=== PATIENT | female | born 1995 | race Two or more races ===

== ENCOUNTER 2016-12-29 08:11 | Emergency (ER) | payer MEDICAID ==
[2016-12-29 08:20] VITALS: BP 133/84
--- NOTE | 2016-12-29 08:50 | EDM.PDOC ---
ED HISTORY OF PRESENT ILLNESS - General Chief Complaint: Respiratory Problem Stated Complaint: SOB/COUGH Time Seen by Provider: 12/29/16 08:26 Source of Information: Reports: Patient, RN notes reviewed History Limitations: Reports: No limitations - History of Present Illness INITIAL COMMENTS - FREE TEXT/NARRATIVE: The patient states that she developed nausea with emesis, cough productive of a clear sputum, headache, the feeling of being hot and cold, and nasal congestion , 2 days ago. She then developed a sore throat and shortness of breath this morning. She has not had a documented fever, and is afebrile here. No ill contacts. She does not recall if she received an influenza vaccine this season. She has been taking nxuz-qlw-tmqwdcr TheraFlu, DayQuil, and NyQuil, with no relief of her symptoms. No prior medical evaluation for this illness - her doctor is in [facility]. - Related Data Allergies/ADRs: Allergies Allergy/AdvReac Type Severity Reaction Status Date / Time No Known Allergies Allergy Verified 12/29/16 08:20 Home Meds: Home Meds Control. 1 tab PO DAILY 12/29/16 [History] Ondansetron [Zofran ODT] 1 tab PO Q8H PRN #10 tab.dis 12/29/16 [Rx] Past Medical History Endocrine/Metabolic History: Reports: Obesity/BMI 30+ Social & Family History - Tobacco Use Smoking Status *Q: Never Smoker Second Hand Smoke Exposure: No - Alcohol Use Alcohol Use History: Yes Alcohol Use Frequency: Socially - Recreational Drug Use Recreational Drug Use: No - Living Situation & Occupation Living situation: Reports: single Occupation: student ([employer]) ED ROS GENERAL - Review of Systems Review Of Systems: See Below Constitutional: Reports: no symptoms HEENT: Reports: No symptoms Respiratory: Reports: No Symptoms Cardiovascular: Reports: No symptoms Endocrine: Reports: no symptoms GI/Abdominal: Reports: No symptoms : Reports: no symptoms Musculoskeletal: Reports: no symptoms Skin: Reports: no symptoms Neurological: Reports: No Symptoms Psychiatric: Reports: No symptoms Hematologic/Lymphatic: Reports: no symptoms Immunologic: Reports: no symptoms ED EXAM, GENERAL - Physical Exam Exam: See Below Exam Limited By: No limitations General Appearance: alert, WD/WN, no apparent distress Eye Exam: bilateral eye: EOMI, normal inspection Ears: normal external exam, normal canal, hearing grossly normal, normal TMs Ear Exam: bilateral ear: auricle normal, canal normal, TM normal Nose: normal inspection, no blood, other (Bilateral nasal mucosal edema) Throat/Mouth: Normal inspection, Normal lips, Normal teeth, Normal gums, Normal oropharynx, Normal voice, No airway compromise Head: atraumatic, normocephalic Neck: normal inspection, supple, non-tender, full range of motion. No: lymphadenopathy (L), lymphadenopathy (R) Respiratory/Chest: no respiratory distress, lungs clear, normal breath sounds, no accessory muscle use Cardiovascular: normal peripheral pulses, regular rate, rhythm, no edema, no gallop, no JVD, no murmur, no rub Peripheral Pulses: 4+: radial (L), radial (R) GI/Abdominal: normal bowel sounds, soft, non tender, no organomegaly, no distention, no abnormal bruit, no mass, other (Obese) Back Exam: normal inspection, full range of motion, NT Extremities: normal inspection, normal range of motion, non-tender, normal capillary refill, no pedal edema Neurological: alert, oriented, normal cognition, no motor/sensory deficits Psychiatric: normal affect, normal mood Skin Exam: Warm, Dry, Intact, Normal color, No rash Lymphatic: no adenopathy Course - Vital Signs Last Recorded V/S: Last Vital Signs Temp 36.3 C 12/29/16 08:17 Pulse 88 12/29/16 08:17 Resp 18 12/29/16 08:17 BP 133/84 12/29/16 08:17 Pulse Ox 97 12/29/16 08:17 - Orders/Labs/Meds Orders: Active Orders 24 hr Category Date Time Status Chest 2V [CR] Stat Exams 12/29/16 08:46 Taken CULTURE STREP A CONFIRMATION [RM] Stat Lab 12/29/16 08:47 Results STREP SCRN A RAPID W CULT CONF [RM] Stat Lab 12/29/16 08:47 Results - Radiology Interpretation Free Text/Narrative:: Two-view chest radiograph appears to be grossly normal. Cardiac silhouette is within normal limits. No pulmonary vascular congestion. No pleural effusions. No focal infiltrate. No pneumothorax. Formal read per the Radiologist pending. - Re-Assessments/Exams Free Text/Narrative Re-Assessment/Exam: 12/29/16 09:31 Test results discussed with the patient. Today's workup is entirely normal. She is most likely suffering from a viral URI with postnasal drip and cough. I explained that, unfortunately, there are no medicines we can give her to treat a viral URI, that it will have to run its course. Additionally, I am not recommending she take any vqig-tzm-zozyarj cough or cold remedies, as she has already discovered, they are ineffective. I am suggesting Chloraseptic spray or warm salt water gargles to treat her sore throat, Tylenol or ibuprofen for discomfort, and perhaps a nasal decongestant or saline spray to treat her nasal congestion. I will e-prescribe Zofran. Departure - Departure Time of Disposition: 09:33 Disposition: Home, Self-Care 01 Condition: good Clinical Impression: Viral URI with cough Referrals: PCP,None [Primary Care Provider] - Lucia Jain PA-C [Physician Industrial/Organizational Psychologist] - Forms: ED Department Discharge Additional Instructions: You were seen in the emergency room today for nausea and vomiting, a cough, a headache, feeling hot and cold, nasal congestion, a sore throat, and shortness of breath. Workup in the ER included a rapid strep test, an influenza swab, and a chest x- ray. Your entire workup was normal. You do not have strep throat, you do not have influenza, and you do not have pneumonia. You MOST LIKELY have a viral upper respiratory infection, also known as a common cold. We do not recommend you take any jstp-ayz-ztgvmii cough or cold remedies, for, as you have already discovered, they do not really help. Consider purchasing oxymetazoline nasal spray in a "pump mist" bottle. If you have difficulty finding it, your Pharmacist can help. [place] one spray up each nostril, wait 5 minutes, then spray a second spray up each nostril. Repeat every 12 hours. You can do this for a MAXIMUM of 5 days. Consider also purchasing nasal saline spray in a pressurized can, such as "Simply Saline". [place] this up each nostril many times per day. Take acjf-gtz-bztexul Tylenol or ibuprofen as needed for discomfort. Ibuprofen will probably work better and last longer, but may cause stomach upset. For your sore throat, consider using Chloraseptic spray or warm salt water gargles. For your nausea and vomiting, dissolve one tablet of the anti-nausea medicine Zofran on your tongue up to every 8 hours, as prescribed. Followup with Lucia Jain in the clinic as needed. If any other problems, please do not hesitate to return to the ER. - My Orders Last 24 Hours: My Active Orders 12/29/16 08:46 Chest 2V [CR] Stat 12/29/16 08:47 CULTURE STREP A CONFIRMATION [RM] Stat STREP SCRN A RAPID W CULT CONF [RM] Stat - Assessment/Plan Last 24 Hours: My Active Orders 12/29/16 08:46 Chest 2V [CR] Stat 12/29/16 08:47 CULTURE STREP A CONFIRMATION [RM] Stat STREP SCRN A RAPID W CULT CONF [RM] Stat
[2016-12-29] MEDS ORDERED: Ondansetron 4 MG Tab.DIS PO ONE (09:34)
--- NOTE | 2016-12-29 12:21 | CR ---
Chest: Two views of the chest were obtained. Comparison: No previous study. Heart size and mediastinum are normal. Lungs are clear. Bony structures are unremarkable. Impression: 1. No acute intrathoracic process is seen on two-view chest x-ray. Diagnostic code #1
== END 2016-12-29 10:03 | disposition home or self-care (01) ==
LOC: JD.ED 08:11
DX: R05 Cough (principal); Z79.3 Long term (current) use of hormonal contraceptives; E66.9 Obesity, unspecified; Z68.30 Body mass index [BMI] 30.0-30.9, adult
CPT/HCPCS: 71020; 87081; 87430; 87804; 99284; A9270; 99283

== ENCOUNTER 2019-01-24 12:56 | Emergency (ER) | payer OTHER ==
[2019-01-24 13:12] VITALS: BP 122/81
[2019-01-24] MEDS ORDERED: Phenazopyridine 95 MG Tab PO STA (13:12)
--- NOTE | 2019-01-24 13:18 | EDM.PDOC ---
ED HPI GENERAL MEDICAL PROBLEM - General Chief Complaint: Genitourinary Problem Stated Complaint: POSS UTI Time Seen by Provider: 01/24/19 13:04 Source of Information: Reports: Patient History Limitations: Reports: No Limitations - History of Present Illness INITIAL COMMENTS - FREE TEXT/NARRATIVE: 23 y/o female presents to ER with cc dysuria and vaginal irritation. She reports having uroprotective sex 5 days ago. She denies back pain, fever or chills. She has not taking anything for her symptoms. Nothing makes it better or worse. She states she has been healthy otherwise. She does not have a PCP. Onset Date: 01/21/19 Onset Time: 09:00 Duration: Getting Worse Quality: Reports: Ache Severity: Mild Improves with: Reports: None Worsens with: Reports: None Associated Symptoms: Denies: Fever/Chills, Nausea/Vomiting Vaginal Pain Score (Numeric/FACES): 5 - Related Data Allergies Allergy/AdvReac Type Severity Reaction Status Date / Time No Known Allergies Allergy Verified 01/24/19 13:07 Home Meds: Home Meds Nitrofurantoin Monohyd/M-Cryst [Macrobid 100 mg Capsule] 100 mg PO BID 7 Days # 14 capsule 01/24/19 [Rx] Past Medical History - Past Health History Medical/Surgical History: Denies Medical/Surgical History Endocrine/Metabolic History: Reports: Obesity/BMI 30+ Social & Family History - Caffeine Use Caffeine Use: Reports: Coffee - Living Situation & Occupation Living situation: Reports: Single Occupation: Student ED ROS GENERAL - Review of Systems Review Of Systems: See Below Constitutional: Denies: Fever, Chills HEENT: Reports: No Symptoms Respiratory: Reports: No Symptoms Cardiovascular: Reports: No Symptoms Endocrine: Reports: No Symptoms GI/Abdominal: Denies: Abdominal Pain : Reports: Discharge (white), Dysuria. Denies: Flank Pain Musculoskeletal: Reports: No Symptoms. Denies: Back Pain Skin: Reports: No Symptoms Neurological: Reports: No Symptoms Psychiatric: Reports: No Symptoms Hematologic/Lymphatic: Reports: No Symptoms Immunologic: Reports: No Symptoms ED EXAM, GI/ABD - Physical Exam Exam: See Below Exam Limited By: No Limitations General Appearance: Alert, WD/WN, No Apparent Distress Respiratory/Chest: No Respiratory Distress, Lungs Clear, Normal Breath Sounds, No Accessory Muscle Use, Chest Non-Tender Cardiovascular: Normal Peripheral Pulses, Regular Rate, Rhythm, No Edema, No Gallop, No JVD, No Murmur, No Rub GI/Abdominal Exam: Normal Bowel Sounds, Soft, Non-Tender, No Organomegaly, No Distention, No Abnormal Bruit, No Mass, Pelvis Stable Back Exam: Normal Inspection, Full Range of Motion Extremities: Normal Inspection, Normal Range of Motion, Non-Tender, No Pedal Edema, Normal Capillary Refill Neurological: Alert, Oriented, Normal Cognition, Normal Gait Psychiatric: Normal Affect, Normal Mood Skin Exam: Warm, Dry, Intact, Normal Color, No Rash Lymphatic: No Adenopathy Course - Vital Signs Last Recorded V/S: Last Vital Signs Temp 97.9 F 01/24/19 13:09 Pulse 80 01/24/19 13:09 Resp 15 01/24/19 13:09 BP 122/81 01/24/19 13:09 Pulse Ox 100 01/24/19 13:09 - Orders/Labs/Meds Labs: Laboratory Tests 01/24/19 01/24/19 Range/Units 13:10 13:10 Urine Color Yellow (Yellow) Urine Appearance Clear (Clear) Urine pH 5.5 (5.0-8.0) Ur Specific [place] > or = 1.030 (1.005-1.030) Urine Protein 1+ H (Negative) Urine Glucose (UA) Negative (Negative) Urine Ketones Negative (Negative) Urine Occult Blood 2+ H (Negative) Urine Nitrite Negative (Negative) Urine Bilirubin Negative (Negative) Urine Urobilinogen 0.2 (0.2-1.0) Ur Leukocyte Esterase 2+ H (Negative) Urine HCG, Qual Negative (NEGATIVE) Meds: Medications Discontinued Medications Generic Name Dose Route Start Last Admin Trade Name Freq PRN Reason Stop Dose Admin Phenazopyridine HCl 95 mg 01/24/19 13:12 01/24/19 13:20 Urinary Pain Relief PO 01/24/19 13:13 95 mg NOW STA Administration - Re-Assessments/Exams Free Text/Narrative Re-Assessment/Exam: 01/24/19 13:36 Urinalysis revealed + 1 protein, + 2 occult blood, + leukocytes. This is consistent with UTI. I will discharge home with Macrobid for outpatient antibiotic therapy. Instructed her to follow up with PCP referral was given for [facility]. Instructed to return to the ER for any new or acute worsening symptoms. Patient verbalized understanding and is comfortable with plan for discharge. She is stable at time of discharge. Departure - Departure Time of Disposition: 13:45 Disposition: Home, Self-Care 01 Condition: Good Clinical Impression: UTI, Urinary tract infectious disease - Discharge Information *PRESCRIPTION DRUG MONITORING PROGRAM REVIEWED*: Not Applicable *COPY OF PRESCRIPTION DRUG MONITORING REPORT IN PATIENT LUCY: Not Applicable Prescriptions: Nitrofurantoin Monohyd/M-Cryst [Macrobid 100 mg Capsule] 100 mg PO BID 7 Days # 14 capsule Instructions: Urinary Tract Infection, Adult, Dysuria Referrals: PCP,None [Ordering Only Provider] - Debbie Dumont MD [Physician] - Forms: ED Department Discharge Additional Instructions: you have been diagnosis with urinary tract infection. Take Macrobid twice daily for 7 days. Follow up with Dr. Dumont or other provider as needed. Return to the ER for any new or acute worsening symptoms.
== END 2019-01-24 13:50 | disposition home or self-care (01) ==
LOC: JD.ED 12:56
DX: N39.0 Urinary tract infection, site not specified (principal)
CPT/HCPCS: 81003; 81025; 99283; A9270

== ENCOUNTER 2019-01-26 03:42 | Emergency (ER) | payer OTHER ==
[2019-01-26 03:54] VITALS: BP 120/67
[2019-01-26] MEDS ORDERED: Proparacaine 0.5% Ophth Soln 15 ML Bottle SCH (04:30)
--- NOTE | 2019-01-26 04:50 | EDM.PDOC ---
ED HPI GENERAL MEDICAL PROBLEM - General Chief Complaint: ENT Problem Stated Complaint: ear pain Time Seen by Provider: 01/26/19 03:58 Source of Information: Reports: Patient History Limitations: Reports: No Limitations - History of Present Illness INITIAL COMMENTS - FREE TEXT/NARRATIVE: This is a 23-year-old female. She says for the last couple of days increasing left ear pain. She tried some xfxj-nda-sipcoww drops are not helping and she comes to the ER for evaluation. She has had some mild sore throat and congestion and sinus congestion over the last 4-5 days. She had a hard time sleeping this evening because of the left ear pain. She has no cough. No nausea and vomiting. She was seen here 2 days ago for urinary tract infection and she is on Macrobid. Bilateral Ear Pain Score (Numeric/FACES): 7 - Related Data Allergies Allergy/AdvReac Type Severity Reaction Status Date / Time No Known Allergies Allergy Verified 01/26/19 03:54 Home Meds: Home Meds Nitrofurantoin Monohyd/M-Cryst [Macrobid 100 mg Capsule] 100 mg PO BID 7 Days # 14 capsule 01/24/19 [Rx] Cephalexin [Keflex] 500 mg PO TID #21 capsule 01/26/19 [Rx] Past Medical History - Past Health History Medical/Surgical History: Denies Medical/Surgical History Endocrine/Metabolic History: Reports: Obesity/BMI 30+ Social & Family History - Tobacco Use Smoking Status *Q: Never Smoker - Caffeine Use Caffeine Use: Reports: Coffee - Recreational Drug Use Recreational Drug Use: Yes Drug Use in Last 12 Months: Yes Recreational Drug Type: Reports: Marijuana/Hashish - Living Situation & Occupation Living situation: Reports: Single Occupation: Student ED ROS ENT - Review of Systems Review Of Systems: See Below Constitutional: Denies: Fever, Chills HEENT: Reports: Ear Pain, Rhinitis, Sinus Problem. Denies: Ear Discharge Respiratory: Denies: Shortness of Breath, Cough Cardiovascular: Denies: Chest Pain Endocrine: Reports: No Symptoms GI/Abdominal: Denies: Abdominal Pain : Reports: Dysuria Musculoskeletal: Reports: No Symptoms Skin: Reports: No Symptoms Neurological: Reports: No Symptoms Psychiatric: Reports: No Symptoms Hematologic/Lymphatic: Reports: No Symptoms ED EXAM, ENT - Physical Exam Exam: See Below Exam Limited By: No Limitations General Appearance: Alert, WD/WN, No Apparent Distress Eye Exam: Bilateral Eye: Normal Inspection Ears: Normal External Exam, Normal Canal, Other (The right TM appears to be normal the left TM is red and bulging) Nose: Clear Rhinorrhea Mouth/Throat: Normal Inspection, Normal Lips, Normal Oropharynx Head: Normocephalic Neck: Supple Respiratory/Chest: No Respiratory Distress, Lungs Clear, Normal Breath Sounds Cardiovascular: Regular Rate, Rhythm, No Murmur Back: Normal Inspection, Full Range of Motion Extremities: Normal Inspection, Normal Range of Motion Neurological: Alert, Oriented Psychiatric: Normal Affect, Normal Mood Skin: Warm, Dry Course - Vital Signs Last Recorded V/S: Last Vital Signs Temp 97.9 F 01/26/19 03:50 Pulse 90 01/26/19 03:50 Resp 16 01/26/19 03:50 BP 120/67 01/26/19 03:50 Pulse Ox 98 01/26/19 03:50 - Orders/Labs/Meds Orders: Active Orders 24 hr Category Date Time Status Proparacaine [Proparacaine 0.5% Ophth Soln] Med 01/26/19 04:30 Active 1 ml .XX Q4H Medication Orders Proparacaine HCl (Proparacaine 0.5% Ophth Soln) 1 ml .XX Q4H [facility] Meds: Medications Generic Name Dose Route Start Last Admin Trade Name Freq PRN Reason Stop Dose Admin Proparacaine HCl 1 ml 01/26/19 04:30 Proparacaine 0.5% Ophth Soln .XX Q4H [facility] - Re-Assessments/Exams Free Text/Narrative Re-Assessment/Exam: 01/26/19 04:47 The proparacaine did seem to take the edge off the left ear pain. I spoke to her about using the drops for the pain as well as getting a decongestant to open up her eustachian tube and get the pressure out of the middle ear. We will stop the Macrobid and I'll place her on some Keflex which hopefully will take care of the bladder infection as well as the ear infection. Departure - Departure Time of Disposition: 04:48 Disposition: Home, Self-Care 01 Condition: Good Clinical Impression: Left otitis media with effusion, Left ear pain - Discharge Information *PRESCRIPTION DRUG MONITORING PROGRAM REVIEWED*: Not Applicable *COPY OF PRESCRIPTION DRUG MONITORING REPORT IN PATIENT LUCY: Not Applicable Prescriptions: Cephalexin [Keflex] 500 mg PO TID #21 capsule Instructions: Otitis Media, Adult, [id number] Referrals: PCP,None [Primary Care Provider] - Forms: ED Department Discharge, ED Return to Work/School Form Additional Instructions: Stop taking the Macrobid, start the Keflex 3 times a day for the next 7 days, use the proparacaine drops to help numb the ears, use ibuprofen 600 mg every 6 hours to help with the ear pain, use heat to the side of the face and neck to help open up the eustachian tube, get some Sudafed or Actifed to help open up the eustachian tube and get the ears to drain, follow-up with your family doctor this week for recheck, return to the ER if needed - My Orders Last 24 Hours: My Active Orders 01/26/19 04:30 Proparacaine [Proparacaine 0.5% Ophth Soln] 1 ml .XX Q4H - Assessment/Plan Last 24 Hours: My Active Orders 01/26/19 04:30 Proparacaine [Proparacaine 0.5% Ophth Soln] 1 ml .XX Q4H
== END 2019-01-26 04:59 | disposition home or self-care (01) ==
LOC: JD.ED 03:42
DX: H65.92 Unspecified nonsuppurative otitis media, left ear (principal)
CPT/HCPCS: 99282; 99283

== ENCOUNTER 2019-08-02 09:49 | Emergency (ER) | payer OTHER ==
[2019-08-02 09:58] VITALS: BP 112/84; PULSE 90
[2019-08-02] MEDS ORDERED: FLU Vacc QS2019-20(6MOS+)/PF 60 MCG/0.5 ML SYRINGE IM ONE (10:30)
--- NOTE | 2019-08-02 11:14 | EDM.PDOC ---
ED HPI GENERAL MEDICAL PROBLEM - General Chief Complaint: Back Pain or Injury Stated Complaint: BACK PAIN,NAUSEA Time Seen by Provider: 08/02/19 10:16 Source of Information: Reports: Patient, RN Notes Reviewed - History of Present Illness INITIAL COMMENTS - FREE TEXT/NARRATIVE: 23-year-old female comes in with low back pain. She first became aware of low back discomfort during the night about its 10 hours ago. He is to have low back pain this morning that hasn't gone away. It does not radiate down either leg. The discomfort does seem to be somewhat worse with motion. There's been no fall or injury. She has had some mild nausea. Occasional chills, no fever. No abdominal or pelvic pain at this time. No voiding symptomatology. Lower Back Pain Score (Numeric/FACES): 8 - Related Data Allergies Allergy/AdvReac Type Severity Reaction Status Date / Time No Known Allergies Allergy Verified 08/02/19 09:58 Home Meds: Home Meds Nitrofurantoin Monohyd/M-Cryst [Macrobid 100 mg Capsule] 100 mg PO BID #10 capsule 08/02/19 [Rx] Past Medical History - Past Health History Medical/Surgical History: Denies Medical/Surgical History Genitourinary History: Reports: UTI, Recurrent Endocrine/Metabolic History: Reports: Obesity/BMI 30+ Social & Family History - Family History Family Medical History: Noncontributory - Tobacco Use Smoking Status *Q: Never Smoker Second Hand Smoke Exposure: No - Caffeine Use Caffeine Use: Reports: None - Recreational Drug Use Recreational Drug Use: Yes Recreational Drug Type: Reports: Marijuana/Hashish Recreational Drug Use Frequency: Socially - Living Situation & Occupation Living situation: Reports: Single Occupation: Student ED ROS GENERAL - Review of Systems Review Of Systems: See Below Constitutional: Reports: Chills. Denies: Fever, Diaphoresis HEENT: Reports: No Symptoms Respiratory: Denies: Shortness of Breath Cardiovascular: Denies: Chest Pain GI/Abdominal: Reports: Nausea. Denies: Abdominal Pain, Diarrhea, Vomiting : Reports: No Symptoms Musculoskeletal: Reports: Back Pain Skin: Reports: No Symptoms Neurological: Reports: No Symptoms ED EXAM,LOWER BACK PAIN/INJURY - Physical Exam Exam: See Below General Appearance: Alert, No Apparent Distress Throat/Mouth: Normal Inspection, Normal Oropharynx Head: Atraumatic Neck: Supple Respiratory/Chest: No Respiratory Distress, Lungs Clear, Normal Breath Sounds Cardiovascular: Regular Rate, Rhythm GI/Abdominal: Soft, Non-Tender Back Exam: Paraspinal Tenderness (Mild left low back). No: CVA Tenderness (L), CVA Tenderness (R), Vertebral Tenderness Neurological: Alert, No Motor/Sensory Deficits Skin Exam: Warm, Normal Color Course - Vital Signs Last Recorded V/S: Last Vital Signs Temp 97.1 F 08/02/19 09:55 Pulse 90 08/02/19 09:55 Resp 16 08/02/19 09:55 BP 112/84 08/02/19 09:55 Pulse Ox 95 08/02/19 09:55 - Orders/Labs/Meds Orders: Active Orders 24 hr Category Date Time Status Influenza Vaccine Charge [RC] .DISCHARGE Care 08/02/19 10:02 Active Labs: Laboratory Tests 08/02/19 Range/Units 10:10 Urine Color Light yellow (Yellow) Urine Appearance Clear (Clear) Urine pH 7.5 (5.0-8.0) Ur Specific [place] 1.020 (1.005-1.030) Urine Protein Negative (Negative) Urine Glucose (UA) Negative (Negative) Urine Ketones Negative (Negative) Urine Occult Blood Trace-intact H (Negative) Urine Nitrite Negative (Negative) Urine Bilirubin Negative (Negative) Urine Urobilinogen 0.2 (0.2-1.0) Ur Leukocyte Esterase Trace H (Negative) Urine RBC 5-10 H (0-5) /hpf Urine WBC 5-10 H (0-5) /hpf Ur Squamous Epith Cells 0-5 (0-5) /hpf Urine Bacteria Moderate H (FEW) /hpf Urine Mucus Few (FEW) /hpf Meds: Medications Discontinued Medications Generic Name Dose Route Start Last Admin Trade Name Freq PRN Reason Stop Dose Admin Influenza Virus Vaccine 1 each 08/02/19 10:02 Pharmacy To Dose - Influenza Vaccine IM 08/02/19 10:03 ONETIME ONE Influenza Virus Vaccine 60 mcg 08/02/19 10:30 08/02/19 10:59 Fluzone Quad [id number] Syringe IM 08/02/19 10:31 60 mcg .ONCE ONE Administration - Re-Assessments/Exams Free Text/Narrative Re-Assessment/Exam: 08/02/19 12:34. UA does show evidence for simple UTI. Will treat with Macrobid 100 mg twice a day for 5 days. Discharge instructions as documented. Departure - Departure Time of Disposition: 11:11 Disposition: Home, Self-Care 01 Condition: Fair Clinical Impression: UTI (urinary tract infection) - Discharge Information Prescriptions: Nitrofurantoin Monohyd/M-Cryst [Macrobid 100 mg Capsule] 100 mg PO BID #10 capsule Instructions: Urinary Tract Infection, Adult, [id number] Referrals: PCP,None [Primary Care Provider] - Forms: ED Department Discharge Additional Instructions: Drink plenty of water to maintain hydration, Macrobid antibiotic 100 mg twice daily for 5 days. follow-up clinic if not much better within 2-3 days as expected, return to ED as needed if symptoms worsening in any way - My Orders Last 24 Hours: My Active Orders 08/02/19 10:02 Influenza Vaccine Charge [RC] .DISCHARGE - Assessment/Plan Last 24 Hours: My Active Orders 08/02/19 10:02 Influenza Vaccine Charge [RC] .DISCHARGE
== END 2019-08-02 11:25 | disposition home or self-care (01) ==
LOC: JD.ED 09:49
DX: N39.0 Urinary tract infection, site not specified (principal); E66.9 Obesity, unspecified; Z68.33 Body mass index [BMI] 33.0-33.9, adult; Z23 Encounter for immunization
CPT/HCPCS: 81001; 90686; 99284-25; G0008

== ENCOUNTER 2020-10-18 14:43 | Emergency (ER) | payer OTHER ==
[2020-10-18 15:01] VITALS: BP 115/84; PULSE 78
--- NOTE | 2020-10-18 15:58 | EDM.PDOC ---
ED HPI GENERAL MEDICAL PROBLEM - General Chief Complaint: Genitourinary Problem Stated Complaint: VAGINAL IRRITATION Time Seen by Provider: 10/18/20 14:52 Source of Information: Reports: Patient, RN Notes Reviewed History Limitations: Reports: No Limitations - History of Present Illness INITIAL COMMENTS - FREE TEXT/NARRATIVE: Patient is a 24 year old female presenting to the ER with c/o vaginal itching/burning x 1 week. She is in a monogamous relationship and is sexually active. She has not changed soaps or hygiene products recently. She denies pelvic pain and has not noticed any abnormal vaginal discharge. Denies pelvic pain or dysuria. The has hx of yeast infections. She has been using OTC vaginal itch cream which she states helps for awhile. Vaginal Pain Score (Numeric/FACES): 5 - Related Data Allergies Allergy/AdvReac Type Severity Reaction Status Date / Time No Known Allergies Allergy Verified 08/02/19 09:58 Home Meds: Home Meds metroNIDAZOLE [Flagyl] 500 mg PO Q12H 7 Days #13 tab 10/18/20 [Rx] Past Medical History - Past Health History Medical/Surgical History: Denies Medical/Surgical History Genitourinary History: Reports: UTI, Recurrent Endocrine/Metabolic History: Reports: Obesity/BMI 30+ Social & Family History - Family History Family Medical History: No Pertinent Family History - Tobacco Use Tobacco Use Status *Q: Never Tobacco User - Caffeine Use Caffeine Use: Reports: Coffee, Soda - Recreational Drug Use Recreational Drug Use: No - Living Situation & Occupation Living situation: Reports: Single Occupation: Student ED ROS GENERAL - Review of Systems Review Of Systems: Comprehensive ROS is negative, except as noted in HPI. ED EXAM, GI/ABD - Physical Exam Exam: See Below Exam Limited By: No Limitations General Appearance: Alert, WD/WN, No Apparent Distress Respiratory/Chest: No Respiratory Distress, Lungs Clear, Normal Breath Sounds, No Accessory Muscle Use, Chest Non-Tender Cardiovascular: Normal Peripheral Pulses, Regular Rate, Rhythm, No Edema, No Gallop, No JVD, No Murmur, No Rub GI/Abdominal Exam: Normal Bowel Sounds, Soft, Non-Tender, No Organomegaly, No Distention, No Abnormal Bruit, No Mass, Pelvis Stable (Female) Exam: Normal Speculum Exam, Normal Bimanual Exam, Other (Areas of lichenification to the labia minora. No lesions.). No: Adnexal Tenderness, Cervical Discharge, Cervical Fluid, Cervical Lesions, Vaginal Bleeding, Vaginal Discharge, Vaginal Lesions Neurological: Alert, Oriented, CN II-XII Intact, Normal Cognition, Normal Gait, Normal Reflexes, No Motor/Sensory Deficits Psychiatric: Normal Affect, Normal Mood Skin Exam: Warm, Dry, Intact, Normal Color, No Rash Course - Vital Signs Last Recorded V/S: Last Vital Signs Temp 97.8 F 10/18/20 15:00 Pulse 78 10/18/20 15:00 Resp 20 10/18/20 15:00 BP 115/84 10/18/20 15:00 Pulse Ox 100 10/18/20 15:00 - Orders/Labs/Meds Labs: Laboratory Tests 10/18/20 10/18/20 10/18/20 Range/Units 15:55 16:02 16:02 Urine Color Colorless L (Yellow) Urine Appearance Clear (Clear) Urine pH 7.0 (5.0-8.0) Ur Specific [place] 1.010 (1.005-1.030) Urine Protein Negative (Negative) Urine Glucose (UA) Negative (Negative) Urine Ketones Negative (Negative) Urine Occult Blood Negative (Negative) Urine Nitrite Negative (Negative) Urine Bilirubin Negative (Negative) Urine Urobilinogen 0.2 (0.2-1.0) Ur Leukocyte Esterase 1+ H (Negative) Urine RBC 0-5 (0-5) /hpf Urine WBC 0-5 (0-5) /hpf Ur Squamous Epith Cells 0-5 (0-5) /hpf Urine Bacteria Few (FEW) /hpf Urine Mucus Not seen (FEW) /hpf Urine HCG, Qual Negative (NEGATIVE) Chlamydia/GC Source Genital C.trachomatis RNA (TMA) Negative (Negative) N.gonorrhoeae RNA (TMA) Negative (Negative) Meds: Medications Discontinued Medications Generic Name Dose Route Start Last Admin Trade Name Freq PRN Reason Stop Dose Admin Metronidazole 500 mg 10/18/20 17:01 Flagyl PO 10/18/20 17:02 ONETIME ONE - Re-Assessments/Exams Free Text/Narrative Re-Assessment/Exam: Patient is a 24-year-old female presenting to the emergency department with complaints of itching and burning in her perennial region. Is been going on for about a week. She denies any abnormal vaginal discharge or foul odor. She is sexually active with one partner. Pelvic exam was completed. There is no obvious lesions, however there are areas of lichenification suggesting long-term irritation. There was no abnormal discharge visualized. I have sent GC chlamydia, herpes, wet prep, and urinalysis. 10/18/20 17:02 Urinalysis was negative for infection. Wet prep was negative for yeast but did show few clue cells with rare WBCs. Herpes and GC chlamydia tests are send outs results would not be available for a few days. We will treat for bacterial vaginosis with Flagyl. Discussed that patient should not consume alcohol while taking this medication. We will notify her if any of the test come back positive. Discharge instructions as documented. Departure - Departure Time of Disposition: 17:03 Disposition: Home, Self-Care 01 Condition: Good Clinical Impression: Bacterial vaginosis - Discharge Information *PRESCRIPTION DRUG MONITORING PROGRAM REVIEWED*: No *COPY OF PRESCRIPTION DRUG MONITORING REPORT IN PATIENT LUCY: No Prescriptions: metroNIDAZOLE [Flagyl] 500 mg PO Q12H 7 Days #13 tab Instructions: Bacterial Vaginosis, [id number] Referrals: PCP,None [Ordering Only Provider] - Forms: ED Department Discharge Additional Instructions: You were seen in the emergency department today for vaginal itching and burning. Work-up included a gonorrhea chlamydia test, herpes test, wet prep, and urinalysis. The herpes, gonorrhea, and chlamydia are send out test, therefore r esults would not be available for a few days. If these will come back positive you will be notified. Your wet prep did not show yeast but it was positive for clue cells indicating bacterial vaginosis. You been started on Flagyl which is the treatment for this. First dose was given in ER. Take the remaining doses as prescribed. Do not consume alcohol while taking this medication as it will make you violently ill. Continue to use the [id number] itch cream. Wash only with gentle, fragrance free soaps. Return to ER as needed. Sepsis Event Note (ED) - Evaluation Sepsis Screening Result: No Definite Risk
[2020-10-18] MEDS ORDERED: metroNIDAZOLE 500 MG Tab PO ONE (17:01)
[2020-10-20 10:47] LABS: C.TRACHOMATIS BY TMA Negative (Negative); N.GONORRHOEAE BY TMA Negative (Negative)
== END 2020-10-18 17:14 | disposition home or self-care (01) ==
LOC: JD.ED 14:43
DX: N76.0 Acute vaginitis (principal); E66.9 Obesity, unspecified; Z68.32 Body mass index [BMI] 32.0-32.9, adult; Z79.899 Other long term (current) drug therapy
CPT/HCPCS: 81001; 81025; 87210; 87491; 87591; 87801; 87808; 99283

== ENCOUNTER 2020-11-12 05:47 | Emergency (ER) | payer OTHER ==
[2020-11-12 05:58] VITALS: BP 123/77; PULSE 83
--- NOTE | 2020-11-12 06:15 | EDM.PDOC ---
ED HPI GENERAL MEDICAL PROBLEM - General Chief Complaint: ENT Problem Stated Complaint: LEFT EAR PAIN Time Seen by Provider: 11/12/20 05:57 Source of Information: Reports: Patient History Limitations: Reports: No Limitations - History of Present Illness INITIAL COMMENTS - FREE TEXT/NARRATIVE: Ms. Bass is a very pleasant 24-year-old woman who now presents to the ED after developing left ear pain yesterday, 11/11/2020. She states that she then felt some drainage of the ear, as she was sleeping on her left side last night. She also developed a mild left-sided sore throat last night. No recent fever. The patient has taken [id number] Tylenol, and placed a cotton ball into her left ear, otherwise, no treatment. Here in the ED, the patient is found to be hemodynamically stable, afebrile, saturating 97% on room air. Prior to yesterday, the patient denies having a recent fever, chills, sore throat, ear pain, nasal or sinus congestion, cough, dyspnea, chest pain, palpitations, nausea, vomiting, constipation, diarrhea, abdominal pain, urinary symptoms, recent weight gain or weight loss, recent bloody bowel movements or black bowel movements, recent joint aches, headaches, or rashes. The patient does not have a PCP. She states that she has already received an influenza vaccine this season. Left Ear Pain Score (Numeric/FACES): 7 - Related Data Allergies Allergy/AdvReac Type Severity Reaction Status Date / Time No Known Allergies Allergy Verified 08/02/19 09:58 Home Meds: Home Meds metroNIDAZOLE [Flagyl] 500 mg PO Q12H 7 Days #13 tab 10/18/20 [Rx] Hydrocort/Neomycin/Polymyxin B [Wnhuhuhm-Gozirvaqn-ZL Otic Susp] 4 drop EARLF Q6H #1 bottle 11/12/20 [Rx] Past Medical History - Past Surgical History HEENT Surgical History: Reports: Oral Surgery (ental extractions) Social & Family History - Tobacco Use Tobacco Use Status *Q: Never Tobacco User - Caffeine Use Caffeine Use: Reports: Coffee, Soda - Alcohol Use Alcohol Use History: Yes Alcohol Use Frequency: Socially - Recreational Drug Use Recreational Drug Use: No - Living Situation & Occupation Living situation: Reports: Single, Alone 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 ED EXAM, ENT - Physical Exam Exam: See Below Exam Limited By: No Limitations General Appearance: Alert, WD/WN, No Apparent Distress Eye Exam: Bilateral Eye: EOMI, Normal Inspection Ears: Normal External Exam, Hearing Grossly Normal, Normal TMs, Other (Right external auditory canal is normal. There is mild erythema and a bit of purulent fluid to the upper proximal aspect of the left external auditory canal.) Nose: Normal Inspection, Normal Mucousa, No Blood Mouth/Throat: Normal Inspection, Normal Gums, Normal Lips, Normal Oropharynx, Normal Teeth Head: Atraumatic, Normocephalic Neck: Normal Inspection, Supple, Non-Tender, Full Range of Motion. No: Lymphadenopathy (L), Lymphadenopathy (R) Course - Vital Signs Last Recorded V/S: Last Vital Signs Temp 36.2 C 11/12/20 05:57 Pulse 83 11/12/20 05:57 Resp 15 11/12/20 05:57 BP 123/77 11/12/20 05:57 Pulse Ox 97 11/12/20 05:57 - Re-Assessments/Exams Free Text/Narrative Re-Assessment/Exam: 11/12/20 06:10 The patient appears to have relatively mild left otitis externa. Her left tympanic membrane appears to be normal. Her oropharynx is normal. I will prescribe Cortisporin otic suspension that she can instill for the next 5 to 7 days. Departure - Departure Time of Disposition: 06:10 Disposition: Home, Self-Care 01 Condition: Good Clinical Impression: Left otitis externa - Discharge Information *PRESCRIPTION DRUG MONITORING PROGRAM REVIEWED*: Not Applicable *COPY OF PRESCRIPTION DRUG MONITORING REPORT IN PATIENT LUCY: Not Applicable Referrals: PCP,None [Primary Care Provider] - Additional Instructions: You were seen in the emergency room after developing left ear pain yesterday, with possible drainage today. On examination, you appear to have relatively mild left otitis externa. A prescription for Cortisporin otic suspension has been sent to the [facility], located in the [facility] grocery store. Instill 4 drops of Cortisporin otic suspension into your left ear 3-4 times a day, for the next 5 to 7 days. If any other problems, please do not hesitate to return to the ER. Sepsis Event Note (ED) - Evaluation Sepsis Screening Result: No Definite Risk - Focused Exam Vital Signs: Vital Signs Temp Pulse Resp BP Pulse Ox 11/12/20 05:57 36.2 C 83 15 123/77 97
== END 2020-11-12 06:20 | disposition home or self-care (01) ==
LOC: JD.ED 05:47
DX: H60.92 Unspecified otitis externa, left ear (principal)
CPT/HCPCS: 99282; 99283